=== PATIENT | male | born 1980 | race Caucasian/White ===

== ENCOUNTER 2016-09-22 16:32 | Emergency (ER) | payer OTHER ==
[2016-09-22 19:40] VITALS: BP 142/89
== END 2016-09-22 19:40 | disposition home or self-care (01) ==
LOC: ED 16:32
DX: L76.82 Other postprocedural complications of skin and subcutaneous tissue (principal); R20.0 Anesthesia of skin; Y65.8 Other specified misadventures during surgical and medical care